=== PATIENT | female | born 1950 | race Hispanic/Latino ===

== ENCOUNTER 2018-08-16 07:46 | Emergency (ER) | payer BC ==
[~2018-08-16] VITALS: Ht 154.9 cm; Wt 74.4 kg
[2018-08-16] MEDS ORDERED: IBUPROFEN400 MG PO (07:55)
[2018-08-16] MEDS ORDERED: BUSPIRONE HCL5 MG PO (07:55)
[2018-08-16] MEDS ORDERED: LOSARTAN POTAS100 MG PO (07:55)
[2018-08-16] MEDS ORDERED: NIFEDIPINE ER30 M1 PO (07:55)
[2018-08-16] MEDS ORDERED: ULTRAM 50MG50 MG PO (07:55)
[2018-08-16] MEDS ORDERED: TRAZODONE HCL50 MG PO (07:55)
[2018-08-16] MEDS ORDERED: METFORMIN HCL500 M2 PO (07:55)
[2018-08-16 08:09] LABS: BASOPHILS # (AUTO) 0.1 (0.0-0.1); EOSINOPHILS # (AUTO) 0.2 (0.0-0.4); EOSINOPHILS % 3.8 % (0.0-6.0); HEMATOCRIT 37.1 % (34.2-44.1); HEMOGLOBIN 12.3 g/dL (12.0-16.0); LYMPHOCYTES # (AUTO) 2.3 (1.0-3.2); LYMPHOCYTES % 39.1 % (18.0-39.1); MEAN CORPUSCULAR HGB CONC 33.2 g/dL (31-35); MEAN CORPUSCULAR VOLUME 87.5 fL (81-99); MONOCYTES # (AUTO) 0.3 (0.2-0.8); MONOCYTES % 4.9 % (4.4-11.3); PLATELET COUNT 323 x10e3/uL (140-360); RED BLOOD COUNT 4.24 x10e6/uL (3.6-5.1); RED CELL DISTRIBUTION WIDTH 12.2 % (11.7-14.4)
[2018-08-16 08:24] LABS: ALANINE AMINOTRANSFERASE 10 IU/L (0-55); ALBUMIN 4.1 g/dL (3.5-5.0); ALBUMIN/GLOBULIN RATIO 1.2 (0.8-2.0); ALKALINE PHOSPHATASE 72 IU/L (40-150); ANION GAP 16.1 mmol/L (8-16); BLOOD UREA NITROGEN 13 mg/dL (7-26); BUN/CREATININE RATIO 16 (6-25); CALCIUM 10.2 mg/dL (8.4-10.2); CARBON DIOXIDE 22 mmol/L (22-29); CHLORIDE 106 mmol/L (98-107); CREATINE KINASE 79 IU/L (29-168); CREATININE, SERUM 0.83 mg/dL (0.57-1.11); EST GLOMERULAR FILTRATION RATE > 60 ML/MIN (60-); GLUCOSE 153 mg/dL (74-118); POTASSIUM 3.1 mmol/L (3.5-5.1); SODIUM 141 mmol/L (136-145)
--- NOTE | 2018-08-16 08:38 | Diagnostic Imaging Report ---
EXAMINATION: CHEST 2 VIEWS INDICATION: Shortness of breath. COMPARISON: None FINDINGS: TUBES and LINES: None. LUNGS: Lungs are well inflated. Lungs are clear. There is no evidence of pneumonia or pulmonary edema. PLEURA: No pleural effusion or pneumothorax. HEART AND MEDIASTINUM: The cardiomediastinal silhouette is unremarkable. BONES AND SOFT TISSUES: No acute osseous lesion. Soft tissues are unremarkable. UPPER ABDOMEN: No free air under the diaphragm. Surgical clips project over the upper abdomen. IMPRESSION: No acute radiographic abnormality. Signed by: Dr. Bhumika John MD on 08/16/2018 8:35 AM
[2018-08-16] MEDS ORDERED: LORAZEPAM 1 MG TAB PO ONE (09:15)
[2018-08-16] MEDS ORDERED: LORAZEPAM INJ 2 MG/ML VIAL IV ONE (09:45)
--- NOTE | 2018-08-16 10:57 | Diagnostic Imaging Report ---
EXAM: CT Chest WITH contrast 08/16/2018 9:32 AM INDICATION: Shortness of breath COMPARISON: Chest x-ray, 08/16/2018 TECHNIQUE: Chest was scanned utilizing a multidetector helical scanner from the lung apex through the level of the diaphragm after administration of IV contrast. Thin section reconstructions were obtained with special concentration on the pulmonary arteries. Coronal and sagittal reformations were obtained. Pulmonary embolism protocol was performed. Dose modulation, iterative reconstruction, and/or weight based adjustment of the mA/kV was utilized to reduce the radiation dose to as low as reasonably achievable IV CONTRAST: 100 cc Isovue-370 RADIATION DOSE: Total DLP: 447.32 mGy*cm Estimated effective dose: (DLP x 0.014 x size factor) mSv COMPLICATIONS: None FINDINGS: LINES/ TUBES: None. LUNGS AND AIRWAYS: No filling defect is identified within the pulmonary arteries to the segmental level. No focal pulmonary consolidation or airspace opacity. There is diffuse atelectasis which may be related to shallow inspiration during exam. Trachea and main bronchi are clear. PLEURA: No pleural effusion or pneumothorax. HEART AND MEDIASTINUM: The thyroid gland is normal. No mediastinal, hilar or axillary lymphadenopathy. The heart is normal in size.. There is no pericardial effusion. No thoracic aortic aneurysm or dissection. There is minimal scattered calcified atherosclerotic plaque. Scattered coronary artery calcifications are seen. There is no dilatation of the thoracic aorta or main pulmonary artery. Main pulmonary artery measures 2.9 cm. UPPER ABDOMEN: Included portions of the liver, spleen, pancreas, adrenals and kidneys unremarkable. Cholecystectomy clips are noted. BONES: No acute or suspicious bony lesions. SOFT TISSUES: Superficial surrounding soft tissue unremarkable. IMPRESSION: 1. No CT evidence for acute pulmonary embolism. 2. No CT evidence for acute chest pathology. 3. Scattered atherosclerotic calcifications in the thoracic aorta and coronary arteries Staff: Farshad Signed by: Dr. J Carlos Yen M.D. on 08/16/2018 10:54 AM
[2018-08-16] MEDS ORDERED: IOPAMIDOL 370 MG/ML 200 ML INFUS..BTL INJ ONE ×2 (11:20→14:51)
[2018-08-16] MEDS ORDERED: SODIUM CHLORIDE 0.9% 50ML 0 ML ONE (11:20)
[2018-08-16 11:39] VITALS: BP 162/95
[2018-08-16] MEDS ORDERED: SODIUM CHLORIDE 0.9% 50ML 50 ML ONE (14:51)
== END 2018-08-16 12:08 | disposition home or self-care (01) ==
LOC: ER 07:46
DX: R06.09 Other forms of dyspnea (principal); F41.1 Generalized anxiety disorder; I10 Essential (primary) hypertension; E11.9 Type 2 diabetes mellitus without complications; F17.210 Nicotine dependence, cigarettes, uncomplicated
CPT/HCPCS: 36415; 71046; 71260; 80053; 82550; 82553; 84484; 85025; 85379; 93005; 99284; J2060; Q9967